=== PATIENT | female | born 1985 | race African-American/Black ===

== ENCOUNTER 2017-01-30 21:18 | Emergency (ER) | payer MEDICAID, OTHER ==
[~2017-01-30] VITALS: Ht 154.9 cm; Wt 95.0 kg
[2017-01-30 21:29] VITALS: BP 110/85; PULSE 85; RESP 18; TEMP 98.4; O2SAT 100
--- NOTE | 2017-01-30 23:09 | PD ---
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 Patient reports her significant other also complained of penile irritation. Patient is sexually active. Patient states that 2 months ago she was extracted with another partner but use a condom. Patient states she thinks she has a yeast infection. Patient is here because of symptoms being present for one day and doesn't like to have any irritations. Patient admits to changing cleansing soaps and has been washing with a new body cleanser that may have caused irritation. Patient denies any actual discharge. Patient denies . Patient denies dysuria frequency or urgency. Patient denies fever chills. No abdominal pain no pelvic pain. Patient rates irritation however 2/10 intensity. PFSH Past Medical History Narrative Medical tubal ligation and substance use nursing notes reviewed Medical History: Denies Significant Hx Diminished Hearing: No Immunizations Current: Yes Influenza Vaccination: No ?: Not LMP: 01-07-17 : 2 Para: 2 Miscarriage: 0 : 0 Tubal Ligation: Yes Past Surgical History Section: Yes (X2) Gynecologic Surgery: Yes (C SECTION) Social History Alcohol Use: No Tobacco Use: No Substance Use: Yes (MARIJUANA) Allergies-Medications (Allergen,Severity, Reaction): Coded Allergies: No Known Allergies (Verified , 01/30/17) Reported Meds & Prescriptions Reported Meds & Active Scripts Active No Active Prescriptions or Reported Medications Review of Systems Except as stated in HPI: all other systems reviewed are Neg General / Constitutional: No: Fever, Chills HENT: No: Congestion Cardiovascular: No: Chest Pain or Discomfort Respiratory: No: Shortness of Breath Gastrointestinal: No: Abdominal Pain Genitourinary: No: Dysuria, Discharge Musculoskeletal: No: Pain Skin: No Rash Neurologic: No: Weakness Psychiatric: No: Anxiety Hematologic/Lymphatic: No: Lymph Node Enlargement Physical Exam Narrative GENERAL: Well-developed well-nourished female in no acute distress no respiratory distress SKIN: Warm and dry. HEAD: Normocephalic. EYES: No scleral icterus. No injection or drainage. NECK: Supple, trachea midline. No JVD or lymphadenopathy. CARDIOVASCULAR: Regular rate and rhythm without murmurs, gallops, or rubs. RESPIRATORY: Breath sounds equal bilaterally. No accessory muscle use. GASTROINTESTINAL: Abdomen soft, non-tender, nondistended. Pelvic exam: normal external exam no redness no induration no lesions, speculum exam white discharge no blood no clots no tissue cervical os closed, bimanual exam no adnexal mass or tenderness no uterine enlargement mass or cervical motion tenderness, cervical os closed. MUSCULOSKELETAL: No cyanosis, or edema. BACK: Nontender without obvious deformity. No CVA tenderness. Data Data Last Documented VS Vital Signs Date Time Temp Pulse Resp B/P Pulse Ox O2 Delivery O2 Flow Rate FiO2 01/30/17 21:29 98.4 85 18 110/85 100 Orders Gc And Chlamydia Pcr (01/30/17 23:09) Wet Prep Profile (01/30/17 23:09) Ua Includes Microscopic (01/30/17 23:09) Ed Urine Pregnancytest Poc (01/30/17 23:09) Labs Laboratory Tests Test 01/30/17 23:20 Urine Color YELLOW Urine Turbidity CLEAR Urine pH 5.5 Urine Specific [place] 1.024 Urine Protein NEG mg/dL Urine Glucose (UA) NEG mg/dL Urine Ketones NEG mg/dL Urine Occult Blood NEG Urine Nitrite NEG Urine Bilirubin NEG Urine Leukocyte Esterase TRACE Urine WBC 25-49 /hpf Urine Squamous Epithelial 0-5 /hpf Cells Microscopic Urinalysis Comment Clue Cells (Wet Prep) NONE SEEN Vaginal Trichomonas (Wet Prep) NONE SEEN Vaginal Yeast (Wet Prep) NONE SEEN MDM Medical Decision Making Medical Screen Exam Complete: Yes Emergency Medical Condition: Yes Medical Record Reviewed: Yes Interpretation(s) Urinalysis positive for white blood cells and leukocyte Estrace Wet prepped: Negative [id number] hCG: Negative Differential Diagnosis Yeast vaginosis, bacterial vaginosis, STI, UTI, Narrative Course Specimens collected and sent for resulting At 12:25 AM patient is aware of available laboratory results and in view of mild pyuria urine culture and sensitivity ordered patient will be given prescription for Macrobid wet prep is negative PCR chlamydia and gonorrhea are pending patient will be treated presumptively for possible STI/STI exposure with Rocephin and azithromycin next line patient is stable for outpatient management Diagnosis Primary Impression: Vagina itching Additional Impression: UTI (urinary tract infection) Qualified Code: N39.0 - Urinary tract infection without hematuria, site unspecified Referrals: Primary Care Physician call for appointment Patient Instructions: General Instructions Additional Instructions: Follow-up with primary care provider Take medication as prescribed Remain sexually abstinent 3 days Return to the emergency for for any concerns or change in condition Increase fluid hydration Take as needed per package directions acetaminophen/Tylenol for fever 100.4F or greater minor discomfort and/or ibuprofen/Advil/Motrin for fever 100.4F or greater or for pain associated inflammation Med/Other Pt SpecificInfo: Prescription(s) given Scripts Nitrofurantoin Monohydrate Macrocrystals (Macrobid)100 Mg [id number] Mg PO BID 3 Days Ref 0 Prov:Miracle Crow MD 01/31/17 Disposition: 01 DISCHARGE HOME Condition: Stable Miracle Crow MD Jan 30, 2017 23:09
[2017-01-30 23:52] LABS: BLOOD, URINE NEG (NEG); GLUCOSE,URINE NEG (NEG); KETONE, URINE NEG (NEG); NITRITE,URINE NEG (NEG); PH, URINE 5.5 (5.0-8.5)
[2017-01-30 23:59] LABS: URINE COLOR YELLOW (YELLW/STRAW)
[2017-01-31] LABS: SQUAMOUS EPITHELIAL CELL URINE 0-5 /hpf (0-5)
[2017-01-31] MEDS ORDERED: MACR100C2 PO (00:27)
[2017-01-31] MEDS ORDERED: cefTRIAXone 250 MG VIAL IM ONE (00:30)
[2017-01-31] MEDS ORDERED: LIDOCAINE HCL 1% 50 ML VIAL IM ONE (00:30)
[2017-01-31] MEDS ORDERED: AZITHROMYCIN 250 MG TAB PO ONE (00:30)
[2017-01-31 01:18] VITALS: BP 112/60
[2017-01-31 05:23] LABS: CHLAMYDIA PCR NOT DETECTED (NOT DETECT); NEISSERIA PCR DETECTED (NOT DETECT)
== END 2017-01-31 01:20 | disposition home or self-care (01) ==
LOC: PHED 21:18
DX: N39.0 Urinary tract infection, site not specified (principal); L29.2 Pruritus vulvae; A54.9 Gonococcal infection, unspecified
CPT/HCPCS: 81001; 84703; 87086; 87210; 87491; 87591; 96372; 99283; J0696

== ENCOUNTER 2017-03-24 00:04 | Emergency (ER) | payer OTHER ==
[~2017-03-24] VITALS: Ht 157.5 cm; Wt 94.5 kg
[~2017-03-24 00:04] MED LIST: MACR100C2 PO
[2017-03-24 00:09] VITALS: BP 109/81; PULSE 91; RESP 12; TEMP 97.8; O2SAT 100
[2017-03-24 00:21] VITALS: BP 109/81; PULSE 91; RESP 18; TEMP 97.8; O2SAT 100
--- NOTE | 2017-03-24 00:51 | PD ---
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 She came in before last month for the same problem. The itching is mostly on the outside of the vagina. She states her boyfriend does use latex condoms. She states she switched detergents but will switch back. She also states she will use the sheets for the fabric softener. She denies any sprays or chemicals put directly on that area. She denies any fever or pelvic pain. PFSH Past Medical History Diminished Hearing: No Immunizations Current: Yes Tetanus Vaccination: > 5 Years Influenza Vaccination: No ?: Not LMP: February : 2 Para: 2 Miscarriage: 0 : 0 Tubal Ligation: Yes Past Surgical History Section: Yes (X2) Gynecologic Surgery: Yes (C SECTION) Social History Alcohol Use: Yes Tobacco Use: No Substance Use: Yes (MARIJUANA) Allergies-Medications (Allergen,Severity, Reaction): Coded Allergies: No Known Allergies (Verified , 03/24/17) Reported Meds & Prescriptions Reported Meds & Active Scripts Active No Active Prescriptions or Reported Medications Review of Systems Except as stated in HPI: all other systems reviewed are Neg Physical Exam Narrative GENERAL: Well-nourished, slightly obese patient in no apparent distress. Vital signs show pulse of 91 but otherwise normal. SKIN: Focused skin assessment warm/dry. HEAD: Normocephalic. EYES: No scleral icterus. No injection or drainage. NECK: Supple, trachea midline. No JVD or lymphadenopathy. CARDIOVASCULAR: Regular rate and rhythm without murmurs, gallops, or rubs. RESPIRATORY: Breath sounds equal bilaterally. No accessory muscle use. GASTROINTESTINAL: Abdomen soft, non-tender, nondistended. No guarding or rebound is present. MUSCULOSKELETAL: No cyanosis, or edema. BACK: Nontender without obvious deformity. No CVA tenderness. GENITOURINARY: Externally there is evidence of contact dermatitis with erythema and some localized swelling without vesicles. Vaginal vault without blood but there is a white drainage. Cervical os was closed with white, [id number] drainage. No cervical motion tenderness. Uterus nontender and nonenlarged. Bilateral adnexa nontender without masses. Data Data Last Documented VS Vital Signs Date Time Temp Pulse Resp B/P Pulse Ox O2 Delivery O2 Flow Rate FiO2 03/24/17 02:19 70 18 03/24/17 02:19 125/65 98 Room Air 03/24/17 00:21 97.8 Orders Gc And Chlamydia Pcr (03/24/17 00:36) Wet Prep Profile (03/24/17 00:36) Urinalysis - C+S If Indicated (03/24/17 00:36) Ed Urine Pregnancytest Poc (03/24/17 00:36) Urine Culture (03/24/17 00:48) Labs Laboratory Tests Test 03/24/17 00:48 Urine Color YELLOW Urine Turbidity MOD Urine pH 6.0 Urine Specific [place] 1.026 Urine Protein TRACE mg/dL Urine Glucose (UA) NEG mg/dL Urine Ketones NEG mg/dL Urine Occult Blood TRACE Urine Nitrite NEG Urine Bilirubin NEG Urine Leukocyte Esterase LARGE Urine RBC 0-3 /hpf Urine WBC 25-49 /hpf Urine Squamous Epithelial 6-8 /hpf Cells Urine Amorphous Sediment FEW Urine Bacteria MOD /hpf Microscopic Urinalysis Comment CULTURE INDICATED Clue Cells (Wet Prep) NONE SEEN Vaginal Trichomonas (Wet Prep) NONE SEEN Vaginal Yeast (Wet Prep) PRESENT MDM Medical Decision Making Medical Screen Exam Complete: Yes Emergency Medical Condition: Yes Medical Record Reviewed: Yes Interpretation(s) The urine shows moderate turbidity, specific gravity 1.026, trace protein, trace occult blood, large leukocyte esterase with 25-49 white cells and moderate bacteria and culture is indicated. The wet prep is negative for clue cells, Trichomonas but positive for vaginal yeast. Differential Diagnosis Contact dermatitis, Trichomonas vaginitis, bacterial vaginosis, urinary tract infection, monilial vaginitis Narrative Course The patient may have a contact dermatitis. She also does have monilial vaginitis and a urinary tract infection. Plan: The patient will get rid of contact allergens to this area, sit in a tub of cool water to see if this helps reduce the itching and is given Macrobid for the urinary tract infection and Diflucan for the monilial vaginitis Diagnosis Primary Impression: UTI (urinary tract infection) Additional Impressions: Monilial vaginitis Contact dermatitis Additional Instructions: As we discussed, use dryer sheets rather than liquid fabric softener, go back to your original detergent, take the Diflucan when you get home and also after he complete the antibiotics for the urine infection. The antibiotics for the urine infection are one tablet twice daily for 10 days. Med/Other Pt SpecificInfo: Prescription(s) given Scripts Fluconazole (Diflucan)150 Mg [id number] Mg PO ONCE #2 TAB Ref 0 Prov:Altaf Bundy MD 03/24/17 Nitrofurantoin Monohydrate Macrocrystals (Macrobid)100 Mg [id number] Mg PO BID #10 CAP Ref 0 Prov:Altaf Bundy MD 03/24/17 Disposition: 01 DISCHARGE HOME Condition: Stable Altaf Bundy MD March 24, 2017 00:51
[2017-03-24 00:56] LABS: BLOOD, URINE TRACE (NEG); GLUCOSE,URINE NEG (NEG); KETONE, URINE NEG (NEG); NITRITE,URINE NEG (NEG)
[2017-03-24 01:11] LABS: URINE COLOR YELLOW (YELLW/STRAW)
[2017-03-24 01:13] LABS: BACTERIA, URINE MOD /hpf; RBC, URINE 0-3 /hpf (0-3)
[2017-03-24 01:14] LABS: COMMENT (UR) CULTURE INDICATED; CULTURE IF INDICATED CULTURE INDICATED
[2017-03-24 01:22] VITALS: BP 103/57; PULSE 76; RESP 18; O2SAT 99
[2017-03-24 02:19] VITALS: BP 125/65; PULSE 80; RESP 18; O2SAT 98
[2017-03-24] MEDS ORDERED: DIFL150T PO (02:32)
[2017-03-24] MEDS ORDERED: MACR100C2 PO (02:32)
[2017-03-24] MEDS ORDERED: NITROFURANTOIN MONOHYD MACROCR 100 MG CAP PO ONE (02:45)
[2017-03-24 12:37] LABS: CHLAMYDIA PCR NOT DETECTED (NOT DETECT); NEISSERIA PCR NOT DETECTED (NOT DETECT)
== END 2017-03-24 02:46 | disposition home or self-care (01) ==
LOC: PHED 00:04
DX: N39.0 Urinary tract infection, site not specified (principal); B37.3 Candidiasis of vulva and vagina; L25.9 Unspecified contact dermatitis, unspecified cause
CPT/HCPCS: 81001; 84703; 87086; 87210; 87491; 87591; 99283

== ENCOUNTER 2018-01-11 04:02 | Emergency (ER) | payer OTHER, MEDICAID ==
[~2018-01-11] VITALS: Ht 152.4 cm; Wt 91.0 kg
[~2018-01-11 04:02] MED LIST changes: +DIFL150T PO
[2018-01-11 04:06] VITALS: BP 122/71; PULSE 78; RESP 16; TEMP 98.1; O2SAT 98
[2018-01-11 04:24] VITALS: BP 122/79; PULSE 78; RESP 16; TEMP 98.1; O2SAT 98
--- NOTE | 2018-01-11 04:33 | PD ---
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 She denies any fever, nausea, vomiting or diarrhea. She said she had a malodorous discharge several days ago but this was shortly after her menstrual period. She has had a tubal ligation. She denies any pelvic or abdominal pain. She does complain of frequency on urination. She denies any fever, nausea, vomiting or diarrhea. [facility] Past Medical History Diminished Hearing: No Immunizations Current: Yes ?: Unknown LMP: 01/10/2018 : 2 Para: 2 Miscarriage: 0 : 0 Tubal Ligation: Yes Past Surgical History Section: Yes (X2) Gynecologic Surgery: Yes (C SECTION, Tubal ) Social History Alcohol Use: No Tobacco Use: No Substance Use: Yes (MARIJUANA) Allergies-Medications (Allergen,Severity, Reaction): Coded Allergies: No Known Allergies (Verified Adverse Reaction, Unknown, 01/11/18) Reported Meds & Prescriptions Reported Meds & Active Scripts Active Review of Systems Except as stated in HPI: all other systems reviewed are Neg Physical Exam Narrative GENERAL: The patient is obese, alert, oriented 3 in no apparent distress. Her vital signs are normal. SKIN: Focused skin assessment warm/dry. HEAD: Atraumatic. Normocephalic. EYES: Pupils equal and round. No scleral icterus. No injection or drainage. ENT: No nasal bleeding or discharge. Mucous membranes pink and moist. NECK: Trachea midline. No JVD. CARDIOVASCULAR: Regular rate and rhythm. No murmur appreciated. RESPIRATORY: No accessory muscle use. Clear to auscultation. Breath sounds equal bilaterally. GASTROINTESTINAL: Abdomen soft, non-tender, nondistended. Hepatic and splenic margins not palpable. No guarding or rebound is present. MUSCULOSKELETAL: No obvious deformities. No clubbing. No cyanosis. No edema. NEUROLOGICAL: Awake and alert. No obvious cranial nerve deficits. Motor grossly within normal limits. Normal speech. PSYCHIATRIC: Appropriate mood and affect; insight and judgment normal. GENITOURINARY: Normal external genitalia without lesions or erythema. Vaginal vault without blood but there is an off white, slightly malodorous drainage. Cervical os was closed without drainage. No cervical motion tenderness. Uterus nontender and nonenlarged. Bilateral adnexa nontender without masses. Data Data Last Documented VS Vital Signs Date Time Temp Pulse Resp B/P (MAP) Pulse Ox O2 Delivery O2 Flow Rate FiO2 01/11/18 04:27 16 01/11/18 04:24 98.1 78 122/79 (93) 98 Orders Orders Gc And Chlamydia Pcr (01/11/18 04:15) Wet Prep Profile (01/11/18 04:15) Urinalysis - C+S If Indicated (01/11/18 04:15) Ed Urine Pregnancytest Poc (01/11/18 04:15) Urine Culture (01/11/18 04:20) Labs Laboratory Tests Test 01/11/18 04:20 01/11/18 04:25 Urine Color YELLOW Urine Turbidity CLOUDY Urine pH 5.5 Urine Specific [place] 1.022 Urine Protein TRACE mg/dL Urine Glucose (UA) NEG mg/dL Urine Ketones NEG mg/dL Urine Occult Blood TRACE Urine Nitrite NEG Urine Bilirubin NEG Urine Leukocyte Esterase LARGE Urine RBC 25-49 /hpf Urine WBC 100-200 /hpf Urine WBC Clumps FEW Urine Squamous Epithelial Cells > 8 /hpf Urine Amorphous Sediment FEW Urine Bacteria OCC /hpf Urine Trichomonas MOD Microscopic Urinalysis Comment CULTURE INDICATED Clue Cells (Wet Prep) NONE SEEN Vaginal Trichomonas (Wet Prep) PRESENT Vaginal Yeast (Wet Prep) NONE SEEN MDM Medical Decision Making Medical Screen Exam Complete: Yes Emergency Medical Condition: Yes Medical Record Reviewed: Yes Interpretation(s) The wet prep is positive for Trichomonas and negative for clue cells or vaginal yeast. The urine shows cloudy turbidity, trace protein, trace occult blood with large leukocyte Estrace, 25-49 red cells and 100-200 white cells with few white cell clumping's, moderate Trichomonas and occasional bacteria and culture is indicated. Differential Diagnosis Bacterial vaginosis, Trichomonas vaginitis, monilial vaginitis, PID, UTI Narrative Course The patient has Trichomonas vaginitis. She also appears to have a cystitis although the Trichomonas can cause cystitis symptoms. Plan: The patient be given Flagyl 500 mg 3 times a day for 10 days along with Septra DS twice daily for 10 days. She needs to increase her liquid intake. She will need to get her partner treated simultaneously. Diagnosis Primary Impression: Trichomonas vaginitis Additional Impression: Cystitis Additional Instructions: The Flagyl is one tablet 3 times daily for 10 days and the Bactrim is one tablet twice daily for 10 days. Do not drink alcohol with the Flagyl, it can cause a serious reaction. Increase your liquid intake. 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 Med/Other Pt SpecificInfo: Prescription(s) given Scripts Sulfamethoxazole-Trimethoprim (Bactrim DS) 800-160 Mg Tab 1 TAB PO BID for Infection, #20 TAB 0 Refills Prov: Altaf Bundy MD 01/11/18 Metronidazole (Flagyl) 500 Mg Tab 500 MG PO TID for Infection for 10 Days, TAB 0 Refills Prov: Altaf Bundy MD 01/11/18 Disposition: 01 DISCHARGE HOME Condition: Stable Altaf Bundy MD Jan 11, 2018 04:33
[2018-01-11 04:45] LABS: BILIRUBIN, URINE NEG (NEG); BLOOD, URINE TRACE (NEG); GLUCOSE,URINE NEG (NEG); KETONE, URINE NEG (NEG); NITRITE,URINE NEG (NEG); PH, URINE 5.5 (5.0-8.5); URINE LEUKOCYTE ESTERASE LARGE (NEG)
[2018-01-11 04:48] LABS: TRICHOMONAS, URINE MOD; URINE COLOR YELLOW (YELLW/STRAW)
[2018-01-11 04:49] LABS: BACTERIA, URINE OCC /hpf; WBC, URINE 100-200 /hpf (0-5)
[2018-01-11 04:50] LABS: AMORPHOUS SEDIMENT, URINE FEW; SQUAMOUS EPITHELIAL CELL URINE > 8 /hpf (0-5); WHITE BLOOD CELL CLUMPS FEW
[2018-01-11] MEDS ORDERED: BACT800T5 PO (05:07)
[2018-01-11] MEDS ORDERED: METR-1 PO (05:07)
[2018-01-11] MEDS ORDERED: metroNIDAZOLE 500 MG TAB PO ONE (05:15)
[2018-01-11] MEDS ORDERED: SULFAMETHOXAZOLE-TRIMETHOPRIM DS 800-160 MG TAB PO ONE (05:15)
[2018-01-11 05:34] VITALS: BP 128/75
== END 2018-01-11 05:40 | disposition home or self-care (01) ==
LOC: PHED 04:02
DX: A59.01 Trichomonal vulvovaginitis (principal); N30.90 Cystitis, unspecified without hematuria
CPT/HCPCS: 81001; 84703; 87086; 87210; 87491; 87591; 99283

== ENCOUNTER 2018-03-22 18:44 | Emergency (ER) | payer OTHER, MEDICAID ==
[2018-03-22] MEDS: diphenhydrAMINE HCL 25 MG CAP PO (19:59)
== END 2018-03-22 20:15 | disposition home or self-care (01) ==
LOC: PHEFT 18:44
DX: S40.862A Insect bite (nonvenomous) of left upper arm, initial encounter (principal); S40.861A Insect bite (nonvenomous) of right upper arm, initial encounter; W57.XXXA Bitten or stung by nonvenomous insect and other nonvenomous arthropods, initial encounter
CPT/HCPCS: 99283